=== PATIENT | female | born 2000 | race Caucasian/White ===

== ENCOUNTER 2021-02-19 19:41 | Emergency (ER) | payer OTHER ==
[~2021-02-19 19:41] MED LIST: VIBRAMYCIN100 MG PO; ZOFRAN4 MG PO
[2021-02-19] MEDS ORDERED: ZOFRAN ODT 4 MG4 MG SL (21:24)
== END 2021-02-19 21:39 | disposition home or self-care (01) ==
LOC: ER1 19:41
DX: R11.2 Nausea with vomiting, unspecified (principal); F17.290 Nicotine dependence, other tobacco product, uncomplicated; Z88.0 Allergy status to penicillin
CPT/HCPCS: 96374; 99283; J2405; J7030

== ENCOUNTER 2021-04-24 16:57 | Emergency (ER) | payer OTHER ==
[~2021-04-24 16:57] MED LIST changes: +ZOFRAN ODT 4 MG4 MG SL
[2021-04-24] MEDS ORDERED: IBUPROFEN600 MG PO (20:49)
== END 2021-04-24 21:01 | disposition home or self-care (01) ==
LOC: ER1 16:57
DX: S00.03XA Contusion of scalp, initial encounter (principal); S60.222A Contusion of left hand, initial encounter; S60.221A Contusion of right hand, initial encounter; S40.021A Contusion of right upper arm, initial encounter; F17.290 Nicotine dependence, other tobacco product, uncomplicated; Z88.0 Allergy status to penicillin; W22.8XXA Striking against or struck by other objects, initial encounter
CPT/HCPCS: 70450; 72040; 72100; 73130; 84703; 99284